=== PATIENT | female | born 1935 | race Caucasian/White ===

== ENCOUNTER 2020-11-02 21:42 | Emergency (ER) | payer OTHER ==
[2020-11-03 01:11] LABS: HEMOGLOBIN 14.7 gm/dl (12.3-15.3); RED BLOOD COUNT 4.88 M/UL (4.00-5.10); WHITE BLOOD COUNT 5.8 K/UL (4.5-11.0)
[2020-11-03 01:30] LABS: BUN/CREATININE RATIO 15 (0-10)
== END 2020-11-03 03:28 | disposition home or self-care (01) ==
LOC: ER1 21:42
PROVIDERS: Family Medicine
DX: R10.9 Unspecified abdominal pain (principal); Z20.822 Contact with and (suspected) exposure to COVID-19
CPT/HCPCS: 71045; 80053; 81001; 82550; 82553; 83605; 83690; 83874; 83880; 84484; 85025; 93005; 99284; U0002